=== PATIENT | female | born 1990 | race Hispanic/Latino ===

== ENCOUNTER → 2018-12-07 | Outpatient (CLI) | payer OTHER ==
[~2018-12-07] MED LIST: IOPAMIDOL 370 MG/ML 200 ML INFUS..BTL INJ ONE; SODIUM CHLORIDE 0.9% 50ML 50 ML ONE
--- NOTE | 2018-12-07 09:40 | Diagnostic Imaging Report ---
EXAMINATION: CT of the neck with contrast HISTORY: Neck mass, enlarged cervical lymph nodes COMPARISON: None TECHNIQUE: Multidetector helical axial images were obtained from the sternal notch through the skull base during intravenous infusion of iodinated contrast material. Images were reconstructed using soft tissue and bone algorithms and were viewed in multiplanar format. Intravenous contrast: 100 mL of Isovue-370. Dose modulation, iterative reconstruction, and/or weight based adjustment of the mA/kV was utilized to reduce the radiation dose to as low as reasonably achievable. FINDINGS: Mass: None. Nodes: Numerous nonspecific mostly subcentimeter bilateral suprahyoid neck lymph nodes are likely reactive. Otherwise no enlarged, necrotic, cystic, calcified or enhancing cervical lymph nodes. Sinuses: Imaged portions unremarkable. Oral cavity: Unremarkable. Salivary glands: Parotid and submandibular glands unremarkable. Pharynx: Unremarkable. Larynx: Unremarkable. Thyroid gland: Unremarkable. Upper esophagus: Unremarkable. Blood vessels: Unremarkable. Bones: Unremarkable. IMPRESSION: No neck mass or enlarged cervical lymphadenopathy. Signed by: Dr. Izabel Jackman M.D. on 12/07/2018 9:37 AM
== END ==
LOC: CT 07:49
PROVIDERS: ATTEND Otolaryngology
DX: R22.1 Localized swelling, mass and lump, neck (principal)
CPT/HCPCS: 70491; Q9967